=== PATIENT | female | born 2005 | race Caucasian/White ===

== ENCOUNTER 2024-03-10 18:10 | Emergency (ER) | payer MEDICAID, SELFPAY ==
[2024-03-10 18:13] VITALS: BP 128/82; PULSE 122; RESP 18; TEMP 36.9; O2SAT 98; BMI 16.9
--- NOTE | 2024-03-10 18:38 | EDS_ITS ---
HPI <AVI Braswell - Last Filed: 03/10/24 20:13> History of Present Illness Chief Complaint: Shortness of Breath Narrative Narrative: Patient is a 18-year-old female with no significant medical history presents to the emergency department for concerns as well as palpitations. Patient states that over the last week to 2 weeks, she has been frequenting emergency department as well as her doctor's office. Patient had a intrauterine ultrasound that was unremarkable. Patient is still early . Patient is positive , and her hCG quant isincreasing. PFSH <AVI Braswell - Last Filed: 03/10/24 20:13> [facility] Home Medications ?Medication ?Instructions ?Recorded ?Last Taken ?Type nitrofurantoin 100 mg PO Q12H 5 days #10 caps 03/10/24 Unknown Rx monohydrate/macrocrystals 100 mg capsule (Macrobid) Allergy/AdvReac Type Severity Reaction Status Date / Time No Known Allergies Allergy Verified 03/10/24 18:13 Social History Smoking Status: Never smoker ROS <AVI Braswell - Last Filed: 03/10/24 20:13> ROS ED ROS Narrative Constitutional: Negative for fever, chills, weight loss, weakness Eyes: Negative for vision loss, vision change, double vision ENT: Negative for any sore throat, ear pain, congestion Cardiovascular: Negative for any chest pain, tightness. Positive palpitations Respiratory: Negative for any cough, sputum production, hemoptysis, dyspnea, dyspnea on exertion, orthopnea Gastrointestinal: Negative for any abdominal pain, nausea, vomiting, diarrhea, constipation, blood in stool, blood in vomit : Negative for any urinary frequency, dysuria, retention, blood in urine. Positive for brown discharge to her vaginal area. This is when she wipes. Muscle skeletal: Negative for any neck pain, back pain Neurological: Negative for any headache, syncope, dizziness Skin: Negative for any rashes, itching, abrasions, lacerations Psychiatric: Negative for any depression, anxiety, stress, suicidal ideation, homicidal ideation Hematologic: Negative for any excessive bruising, easy bleeding EXAM <AVI Braswell - Last Filed: 03/10/24 20:13> Physical Exam Narrative Exam Narrative: Vital signs reviewed. HEET: Head normocephalic atraumatic, TMs clear bilaterally. Posterior pharynx is clear, moist mucous membranes. Nares clear bilaterally. Neck: Supple with no lymphadenopathy or tenderness. No signs of meningismus. Cardiac: Regular rate and rhythm no murmurs gallops or rubs, equal peripheral pulses bilaterally. Respiratory: Lungs clear to auscultation bilaterally. No chest tenderness. Abdomen: Soft, nontender, nondistended. No abdominal bruit or pulsatile masses. No hepatosplenomegaly Extremities: No peripheral edema, no signs of gross trauma or deformity. Active full range of motion of all extremities. Neuro: Cranial nerves II through XII intact, no focal neurological deficits. Skin: Clean dry and intact with no rash, purpura, petechiae, vesicles or pustules. Backs/flank: No CVA tenderness, no midline spinal tenderness, no deformity. Psych: Normal mood and affect. No SI, HI or acute psychosis. Const Vital Signs: 03/10/24 18:13 03/10/24 19:58 03/10/24 20:01 Temperature 98.5 F 97.1 F L Temperature Source Temporal Pulse Rate 122 H 91 Respiratory Rate 18 16 Respiratory Effort Normal Non-Labored Respiratory Depth Normal Respiratory Pattern Normal Blood Pressure 128/82 H 108/75 Blood Pressure Mean 97 86 Pulse Ox 98 99 Oxygen Delivery Method Room Air Room Air Positive well nourished and well developed General Appearance ED: well developed <Dr. Bart Dennis MD - Last Filed: 03/10/24 20:26> Physical Exam Const Vital Signs: 03/10/24 18:13 03/10/24 19:58 03/10/24 20:01 Temperature 98.5 F 97.1 F L Temperature Source Temporal Pulse Rate 122 H 91 Respiratory Rate 18 16 Respiratory Effort Normal Non-Labored Respiratory Depth Normal Respiratory Pattern Normal Blood Pressure 128/82 H 108/75 Blood Pressure Mean 97 86 Pulse Ox 98 99 Oxygen Delivery Method Room Air Room Air MDM <AVI Braswell - Last Filed: 03/10/24 20:13> MDM Lab Data Labs: Laboratory Results - last 24 hr 03/10/24 03/10/24 18:50 19:30 WBC 9.4 RBC 4.61 Hgb 13.9 Hct 41.2 MCV 89.4 MCH 30.2 MCHC 33.7 RDW Std Deviation 39.9 RDW Coeff of Ceci 12.2 Plt Count 264 MPV 9.3 Immature Gran % (Auto) 0.300 Neut % (Auto) 67.7 Lymph % (Auto) 20.3 [place] % (Auto) 9.7 Eos % (Auto) 1.1 Baso % (Auto) 0.9 Absolute Neuts (auto) 6.3 Absolute Lymphs (auto) 1.90 Nucleated RBC % 0 Sodium 139 Potassium 3.2 L Chloride 106 Carbon Dioxide 22.0 Anion Gap 11 BUN 8 Creatinine 0.58 Estim Creat Clear Calc 109.79 Est GFR (MDRD) Af Amer 169 Est GFR (MDRD) Non-Af 139 BUN/Creatinine Ratio 13.8 Glucose 89 Calcium 9.4 Urine Color Yellow Urine Clarity Sl. Cloudy Urine pH 6.0 Ur Specific [place] 1.020 Urine Protein 30 H Urine Glucose (UA) Normal Urine Ketones 150 A* Urine Occult Blood 50 H Urine Nitrite Negative Urine Bilirubin Negative Urine Urobilinogen 4 H Ur Leukocyte Esterase 25 H Urine RBC 0-5 SEEN Urine WBC 0-5 SEEN Ur Squamous Epith Cells 5-10 SEEN Urine Bacteria 1+ Urine Mucus 0 SEEN Treatment and Re-Evaluation :: Differential diagnosis includes however is not limited to: Patient appears to be in no obvious respiratory distress vital signs are stable. Patient presents to the emergency department with complaints of palpitations, lightheadedness, also concerned about . Looking at lab values from another facility, patient is definitely with continuing increasing hCG quant. Patient on my evaluation had normal heart sounds, patient received IV fluids, CBC as well as a BMP. Patient has a establish CAREER DEVELOPMENT COORDINATOR/TEACHER. Patient will be reevaluated Patient's CBC was unremarkable, chemistry shows slight hypokalemia with a potassium 3.2 this replaced orally. Patient urinalysis was positive for 1+ bacteria however there was squamous cells. Will be sent for culture. Patient will be started on Macrobid secondary to being . She will follow-up with her CAREER DEVELOPMENT COORDINATOR/TEACHER in 2 days. She instructed return for any worsening symptoms. All questions answered, patient stable for discharge. <Dr. Bart Dennis MD - Last Filed: 03/10/24 20:26> [facility] MDM Narrative Medical decision making narrative: Patient presents because of vaginal bleeding. She was seen in outside facility. Records from outside facility were obtained. Ultrasound revealed no intrauterine gestational sac of . Quant at that time was 77. Most recent quant is 291. I have personally performed a face to face assessment of the patient and have reviewed the NAYELI Note. I performed a substantive portion of the visit including all aspects of the following. My puckett findings include: History is remarkable for positive test with rising quantitative hCG appropriate for timeframe. Ultrasound that revealed no adnexal abnormality and no intrauterine however her quant at that time was only 77. Patient presents because she does not understand why she continues to have brown spotty vaginal bleeding. Patient's blood type is O+. Patient was informed that her blood type is O+. She denies abdominal pain. She states has not had intercourse in 2 weeks. Exam is pleasant thin 18-year-old appears no distress. She was tachycardic. That was one of her concerns. HEENT is unremarkable for dry mucosa otherwise negative. Heart is rapid and regular. There is no murmur, gallop or rub. Abdomen soft nontender. There is no CVA tenderness noted. Medical Decision Making UA was obtained. UA reveals bacteria. Since she is culture was sent and she was treated with antibiotics. Patient was informed of her results from outside facility. She was explained that she has a threatened miscarriage. She was informed as long as she has vaginal bleeding pelvic rest and this was explained to her. Other additions or changes: [None] Lab Data Attestation: I reviewed the patient's lab results. Lab results narrative: CBC is normal. Electrolyte panel is normal. UA reveals ketones, protein, blood and leukoesterase. There is 0-5 WBCs with 1+ bacteria. Labs: Laboratory Results - last 24 hr 03/10/24 03/10/24 18:50 19:30 WBC 9.4 RBC 4.61 Hgb 13.9 Hct 41.2 MCV 89.4 MCH 30.2 MCHC 33.7 RDW Std Deviation 39.9 RDW Coeff of Ceci 12.2 Plt Count 264 MPV 9.3 Immature Gran % (Auto) 0.300 Neut % (Auto) 67.7 Lymph % (Auto) 20.3 [place] % (Auto) 9.7 Eos % (Auto) 1.1 Baso % (Auto) 0.9 Absolute Neuts (auto) 6.3 Absolute Lymphs (auto) 1.90 Nucleated RBC % 0 Sodium 139 Potassium 3.2 L Chloride 106 Carbon Dioxide 22.0 Anion Gap 11 BUN 8 Creatinine 0.58 Estim Creat Clear Calc 109.79 Est GFR (MDRD) Af Amer 169 Est GFR (MDRD) Non-Af 139 BUN/Creatinine Ratio 13.8 Glucose 89 Calcium 9.4 Urine Color Yellow Urine Clarity Sl. Cloudy Urine pH 6.0 Ur Specific [place] 1.020 Urine Protein 30 H Urine Glucose (UA) Normal Urine Ketones 150 A* Urine Occult Blood 50 H Urine Nitrite Negative Urine Bilirubin Negative Urine Urobilinogen 4 H Ur Leukocyte Esterase 25 H Urine RBC 0-5 SEEN Urine WBC 0-5 SEEN Ur Squamous Epith Cells 5-10 SEEN Urine Bacteria 1+ Urine Mucus 0 SEEN Discharge Plan Triage Chief Complaint: Shortness of Breath Other Complaint: Vag Bld, Preg ED Midlevel Provider: Noam Coronado ED Provider: Bart Dennis Dx/Rx/DC Orders Clinical Impression: , Threatened miscarriage, Urinary tract infection during Instructions: Urinary Tract Infections in Women, Miscarriage Threatened Abor tion Prescriptions: New nitrofurantoin monohyd/m-cryst [Macrobid] 100 mg capsule 100 mg PO Q12H 5 Days Qty: 10 0RF Rx Instructions: must administer with a meal/food Primary Care Provider: Montana Mcnally Referrals: Montana Mcnally PA [Primary Care Provider] - Activity Restrictions/Additional Instructions: Please follow-up outpatient. Continue to follow with CAREER DEVELOPMENT COORDINATOR/TEACHER. Take the antibiotics until finished Print Language: Tamazight Disposition Disposition: Home, Self Care Discharge Date/Time: 03/10/24 20:22
[2024-03-10] MEDS: 0.9% Normal Saline (1000mL) 1,000 ML 999 ML IV (18:56)
[2024-03-10 19:02] LABS: Absolute Neutrophil Count 6.3 X10^3/uL (2.0-7.7); Basophil# 0.08 X10^3/uL; Basophil% 0.9 % (0-1); Eosinophils% 1.1 % (0-5); Hematocrit 41.2 % (37-47); Hemoglobin 13.9 g/dL (12.0-15.0); Lymphocyte % 20.3 % (19-41); Mean Corp Hgb Conc 33.7 g/dL (32-36); Mean Corpuscular Hgb 30.2 pg (27.0-32.0); Mean Corpuscular Volume 89.4 fL (81-99); Mean Platelet Vol. 9.3 fl (6.2-12.0); Monocyte# 0.91 X10^3/uL; Monocyte% 9.7 % (0-10); NRBC Flagged by Analyzer 0 % (0-5); Neutrophil # 6.34 X10^3/uL (2.7-7.7); Neutrophil % 67.7 % (47-70); Platelet Count 264 K/mm3 (150-450); RBC Distribution Width CV 12.2 % (11.6-14.6); RBC Distribution Width SD 39.9 fl (35.1-43.9); Red Blood Count 4.61 M/mm3 (4.2-5.4); White Blood Count 9.4 K/mm3 (4.4-11.0)
[2024-03-10 19:33] LABS: Anion Gap 11 (5-15); BUN 8 mg/dL (7-18); BUN/Creat Ratio 13.8 RATIO (10-20); Calcium,Total 9.4 mg/dL (8.5-10.1); Chloride 106 mmol/L (98-107); Creatinine, Serum 0.58 mg/dL (0.55-1.02); EST Glomerular Filtration Rate 139 mL/min (>60); Est Glom Filt Rate - Afr Amer 169 mL/min (>60); Estimated Creatinine Clearance 109.79 ml/min; Glucose 89 mg/dL (74-106); Potassium 3.2 mmol/L (3.5-5.1); Sodium Level 139 mmol/L (136-145)
[2024-03-10 19:38] LABS: Color, Urine Yellow (Yellow); Glucose, Dipstick Normal (Normal); Leukocyte Esterase-Dipstick 25 /ul (Negative); Mucous, Urine 0 SEEN /hpf (<or=2+); Nitrite-Dipstick Negative (Negative); Occult Blood-Urine 50 /ul (Negative); Protein-Dipstick 30 mg/dl (Negative); Urine Bilirubin Dipstick Negative (Negative); Urine Clarity Sl. Cloudy (Clear); Urine Urobilinogen 4 mg/dl (Normal)
[2024-03-10 19:53] LABS: Bacteria 1+ /hpf (None Seen); Ketone-Dipstick 150 mg/dl (Negative); Red Blood Cells-Urine 0-5 SEEN /hpf (0-5); Squamous Epithelial Cells - UA 5-10 SEEN /hpf (5-10); White Blood Cells 0-5 SEEN /hpf (0-5)
[2024-03-10] MEDS: Potassium Chloride Oral Tablet 20 MEQ 40 MEQ PO (19:57)
[2024-03-10 20:01] VITALS: BP 108/75; PULSE 91; RESP 16; TEMP 36.2; O2SAT 99
[2024-03-10] MEDS: Nitrofurantoin Macrocrystals 100 MG Capsule PO (20:03)
== END 2024-03-10 20:22 | disposition home or self-care (01) ==
PROVIDERS: Nurse Practitioner; Emergency Provider Emergency Medicine; PCP Physician Assistant; Visit Provider Emergency Medicine
DX: O20.0 Threatened abortion (principal); O23.41 Unspecified infection of urinary tract in pregnancy, first trimester; R06.02 Shortness of breath; Z3A.00 Weeks of gestation of pregnancy not specified
CPT/HCPCS: 80048; 81001; 85025; 87086; 96360; 99285; J7030

== ENCOUNTER 2025-09-03 13:45 | Day surgery (SDC) | payer MEDICAID, SELFPAY ==
--- NOTE | 2025-08-27 17:06 | PAT.ANE_ITS ---
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 When Was Last Pacemaker Check QUESTION #4 FULL TEXT: You/Your Family Experience fever (hyperthermia) with Anesthesia Last Oral Intake Last Oral intake: Last Oral Intake NPO since Meds taken in AM with sips of water? Meds patient instructed to take am of surgery PONV PONV - mushroom press operator: PONV - mushroom press operator Female Yes 08/23/25 15:13 HX of Motion Sickness No 08/23/25 15:13 HX of N/V After Surgery No 08/23/25 15:13 Non-Smoker No 08/23/25 15:13 Duration of Surgery greater No 08/23/25 15:13 than 60 minutes Number of Risk Factors 1 08/23/25 15:13 PONV Score Low Risk 08/23/25 15:13 Height & Weight Height & Weight: Anesthesia: Height & Weight Height 5 ft 4 in 07/22/25 11:27 Respiratory Assessment Respiratory Assessment - mushroom press operator: Respiratory Tract Infection Hx - mushroom press operator Hx Respiratory Tract Infection No 08/23/25 15:13 STOP Sleep Apnea STOP Sleep Apnea - mushroom press operator: STOP Sleep Apnea - mushroom press operator Hx Hypertension No 08/23/25 15:13 Hx Sleep Apnea No 08/23/25 15:13 CPAP BIPAP Do you snore loudly (louder No 08/23/25 15:13 than talking or can be heard Do you often feel tired/ No 08/23/25 15:13 fatigued/ sleepy during daytime? Has anyone observed you stop No 08/23/25 15:13 breathing during sleep? STOP Results Negative 08/23/25 15:13 QUESTION #5 FULL TEXT : Do you snore loudly (louder than talking or can be heard through closed doors)? 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 Specify any problems Hx of Preganancy in last 3 No 08/23/25 15:13 Months Nurse Filling Out Transfusion JZOLLINGE 08/23/25 15:13 & Questions: Date: 08/23/25 08/23/25 15:13 Time: 15:15 08/23/25 15:13 Patient unable to answer at this time (ie. confused, unrespo /Reproduction History /Reproductive History - mushroom press operator: /Reproductive Hx- mushroom press operator Hx Now No 08/23/25 15:13 Gestational Age (in weeks): EDC: Hx Hx Para Hx Section SAB No 08/23/25 15:13 Does the father of the baby or his family experience fever w Father of the baby Malignant Hypertension history comment PFSH Medical History (Updated 08/23/25 @ 15:13 by Marti Weinberg) Wears glasses Easy bruising Seizures Smoker POTS (postural orthostatic tachycardia syndrome) Anxiety and depression Home Medications ?Medication ?Instructions ?Recorded ?Last Taken ?Type fluoxetine 20 mg capsule (Prozac) 20 mg PO QDAY Unknown History Allergy/AdvReac Type Severity Reaction Status Date / Time No Known Allergies Allergy Verified 08/23/25 15:05 Family History (Updated 07/22/25 @ 11:38 by Karon Orlando) Grandmother Asthma History of blood clots Myocardial infarction Brother Diabetes Father Seizures Surgical History (Updated 08/23/25 @ 15:13 by Marti Weinberg) Hx of wisdom tooth extraction History of cholecystectomy Social History (Updated 10/13/25 @ 11:36 by Karon Bajwa Smoking Status: Light Smoker (<10/day) Electronic Cigarette Use: with nicotine alcohol intake: never substance use type: does not use what type of physical activity do you participate in: none additional social history: Single Audit: Pertinent Findings Pertinent Findings Additional pertinent findings: The patient was diagnosed with POTS recently. Will see coal hauler operator on 08/29/2025. Recommendation Anesthesia Recommendation Anesthesia recommendation: OPTIMIZED for anesthesia
--- NOTE | 2025-08-29 13:29 | PAT.ANESEVAL ---
Pre-Assessment Diagnosis/Proposed Procedure Planned Operative Procedure(s): (B) Laparoscopic, Salpingectomy Anesthesia History Anesthesia History - physician underwriter: Anesthesia History - physician underwriter Hx Hospitalization Yes: [facility]IL[facility] 08/23/25 15:13 Any Problems With Anesthesia No 08/23/25 15:13 Cholinesterase deficiency No 08/23/25 15:13 You/Your Family Experience No 08/23/25 15:13 fever (hyperthermia) with Relationship Recent Exposure to Contagious Disease Does patient have nerve No 08/23/25 15:13 stimulator Patient instructed to have device shut off --Does patient have Pacemaker or ICD? When Was Last Pacemaker Check QUESTION #4 FULL TEXT: You/Your Family Experience fever (hyperthermia) with Anesthesia Last Oral Intake Last Oral intake: Last Oral Intake NPO since Meds taken in AM with sips of water? Meds patient instructed to take am of surgery PONV PONV - physician underwriter: PONV - physician underwriter Female Yes 08/23/25 15:13 HX of Motion Sickness No 08/23/25 15:13 HX of N/V After Surgery No 08/23/25 15:13 Non-Smoker No 08/23/25 15:13 Duration of Surgery greater No 08/23/25 15:13 than 60 minutes Number of Risk Factors 1 08/23/25 15:13 PONV Score Low Risk 08/23/25 15:13 Height & Weight Height & Weight: Anesthesia: Height & Weight Height 5 ft 4 in 07/22/25 11:27 Respiratory Assessment Respiratory Assessment - physician underwriter: Respiratory Tract Infection Hx - physician underwriter Hx Respiratory Tract Infection No 08/23/25 15:13 STOP Sleep Apnea STOP Sleep Apnea - physician underwriter: STOP Sleep Apnea - physician underwriter Hx Hypertension No 08/23/25 15:13 Hx Sleep Apnea No 08/23/25 15:13 CPAP BIPAP Do you snore loudly (louder No 08/23/25 15:13 than talking or can be heard Do you often feel tired/ No 08/23/25 15:13 fatigued/ sleepy during daytime? Has anyone observed you stop No 08/23/25 15:13 breathing during sleep? STOP Results Negative 08/23/25 15:13 QUESTION #5 FULL TEXT : Do you snore loudly (louder than talking or can be heard through closed doors)? 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 Specify any problems Hx of Preganancy in last 3 No 08/23/25 15:13 Months Nurse Filling Out Transfusion JZOLLINGE 08/23/25 15:13 & Questions: Date: 08/23/25 08/23/25 15:13 Time: 15:15 08/23/25 15:13 Patient unable to answer at this time (ie. confused, unrespo /Reproduction History /Reproductive History - physician underwriter: /Reproductive Hx- physician underwriter Hx Now No 08/23/25 15:13 Gestational Age (in weeks): EDC: Hx Hx Para Hx Section SAB No 08/23/25 15:13 Does the father of the baby or his family experience fever w Father of the baby Malignant Hypertension history comment PFSH Medical History (Updated 08/23/25 @ 15:13 by Marti Weinberg) Wears glasses Easy bruising Seizures Smoker POTS (postural orthostatic tachycardia syndrome) Anxiety and depression Home Medications ?Medication ?Instructions ?Recorded ?Last Taken ?Type fluoxetine 20 mg capsule (Prozac) 20 mg PO QDAY 07/22/25 Unknown History Allergy/AdvReac Type Severity Reaction Status Date / Time No Known Allergies Allergy Verified 08/23/25 15:05 Family History (Updated 07/22/25 @ 11:38 by Karon Orlando) Grandmother Asthma History of blood clots Myocardial infarction Brother Diabetes Father Seizures Surgical History (Updated 08/23/25 @ 15:13 by Marti Weinberg) Hx of wisdom tooth extraction History of cholecystectomy Social History (Updated 10/13/25 @ 11:36 by Karon Bajwa Smoking Status: Light Smoker (<10/day) Electronic Cigarette Use: with nicotine alcohol intake: never substance use type: does not use what type of physical activity do you participate in: none additional social history: Single Audit: Pertinent Findings HISTORY of Pertinent Findings History of Pertinent Findings: Additional Pertinent Findings Additional pertinent findings The patient was diagnosed 08/27/25 17:08 with POTS recently. Will see helicopter mechanic on 2024. Pertinent Findings Additional pertinent findings: Patient being evaluated for POTS. This is to be performed 08/29 2025. If issues patient is going to notify surgery. Recommendation Anesthesia Recommendation Anesthesia recommendation: OPTIMIZED for anesthesia
--- NOTE | 2025-08-30 12:21 | PAT.ANE_ITS ---
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 When Was Last Pacemaker Check QUESTION #4 FULL TEXT: You/Your Family Experience fever (hyperthermia) with Anesthesia Last Oral Intake Last Oral intake: Last Oral Intake NPO since Meds taken in AM with sips of water? Meds patient instructed to take am of surgery PONV PONV - family and consumer education teacher: PONV - family and consumer education teacher Female Yes 08/23/25 15:13 HX of Motion Sickness No 08/23/25 15:13 HX of N/V After Surgery No 08/23/25 15:13 Non-Smoker No 08/23/25 15:13 Duration of Surgery greater No 08/23/25 15:13 than 60 minutes Number of Risk Factors 1 08/23/25 15:13 PONV Score Low Risk 08/23/25 15:13 Height & Weight Height & Weight: Anesthesia: Height & Weight Height 5 ft 4 in 08/29/25 13:55 Respiratory Assessment Respiratory Assessment - family and consumer education teacher: Respiratory Tract Infection Hx - family and consumer education teacher Hx Respiratory Tract Infection No 08/23/25 15:13 STOP Sleep Apnea STOP Sleep Apnea - family and consumer education teacher: STOP Sleep Apnea - family and consumer education teacher Hx Hypertension No 08/23/25 15:13 Hx Sleep Apnea No 08/23/25 15:13 CPAP BIPAP Do you snore loudly (louder No 08/23/25 15:13 than talking or can be heard Do you often feel tired/ No 08/23/25 15:13 fatigued/ sleepy during daytime? Has anyone observed you stop No 08/23/25 15:13 breathing during sleep? STOP Results Negative 08/23/25 15:13 QUESTION #5 FULL TEXT : Do you snore loudly (louder than talking or can be heard through closed doors)? 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 Specify any problems Hx of Preganancy in last 3 No 08/23/25 15:13 Months Nurse Filling Out Transfusion JZOLLINGE 08/23/25 15:13 & Questions: Date: 08/23/25 08/23/25 15:13 Time: 15:15 08/23/25 15:13 Patient unable to answer at this time (ie. confused, unrespo /Reproduction History /Reproductive History - family and consumer education teacher: /Reproductive Hx- family and consumer education teacher Hx Now No 08/23/25 15:13 Gestational Age (in weeks): EDC: Hx Hx Para Hx Section SAB No 08/23/25 15:13 Does the father of the baby or his family experience fever w Father of the baby Malignant Hypertension history comment PFSH Medical History (Updated 08/29/25 @ 14:[address] Zion Alcantara, DO) Wears glasses Easy bruising Seizures Smoker POTS (postural orthostatic tachycardia syndrome) Anxiety and depression Home Medications ?Medication ?Instructions ?Recorded ?Last Taken ?Type fluoxetine 20 mg capsule (Prozac) 20 mg PO QDAY Unknown History Allergy/AdvReac Type Severity Reaction Status Date / Time No Known Allergies Allergy Verified 08/29/25 13:58 Family History (Updated 07/22/25 @ 11:38 by Karon Orlando) Grandmother Asthma History of blood clots Myocardial infarction Brother Diabetes Father Seizures Surgical History (Updated 08/23/25 @ 15:13 by Marti Weinberg) Hx of wisdom tooth extraction History of cholecystectomy Social History (Updated 08/29/25 @ 14:00 by Devora Parada Smoking Status: Light Smoker (<10/day) Electronic Cigarette Use: with nicotine quit status: not considering quitting alcohol intake: never substance use type: does not use caffeine: Yes Type: carbonated beverages Number of servings: 1 what type of physical activity do you participate in: none additional social history: Single Audit: Pertinent Findings HISTORY of Pertinent Findings History of Pertinent Findings: Additional Pertinent Findings Additional pertinent findings Patient being evaluated for 08/29/25 13:31 POTS. This is to be performed 08/29 2025. If issues patient is going to notify surgery. Additional pertinent findings The patient was diagnosed 08/27/25 17:08 with POTS recently. Will see cherry dipper on 2024. Pertinent Findings Consult pertinent findings: Cardiology 08/29/2025. Preop cardiovascular exam. No further testing indicated prior to noncardiac surgery postural orthostatic tachycardia syndrome. Chronic. Ongoing for the past 6 to 12 months. Well- tolerated patient was recommended to have adequate hydration and good fluid intake and salt intake. No further workup at this time. Recommendation Anesthesia Recommendation Anesthesia recommendation: OPTIMIZED for anesthesia
[2025-09-03] VITALS (10 sets, daily range): BP systolic 96–124; BP diastolic 66–83; PULSE 61–98; RESP 16–20; TEMP 36.3–37.1; O2SAT 99–100; BMI 20.5
--- NOTE | 2025-09-03 14:05 | PCM.HP.BLA ---
History and Physical Date of Admission: 09/03/25 Intake Vital Signs 03/10/2418:13 07/22/2511:27 Height 5 ft 4 in 5 ft 4 in Weight: 120 lb 4 oz BMI 20.6 BP 121/77 H Intake Visit Reasons: Tubal Consult Blindstitch Hemmer Required: No Is patient in pain?: No Allergies No Known Allergies Allergy (Verified 07/22/25 11:34) Medications ?Medication ?Instructions ?Recorded ?Confirmed ?Type fluoxetine 20 mg capsule (Prozac) 20 mg PO QDAY 07/22/25 07/22/25 History Post menopausal: No Patient : No : No [facility] Medical History (Updated 07/22/25 @ 17:[address] Maria Luisa Blair, DO) POTS (postural orthostatic tachycardia syndrome) Anxiety and depression Surgical History (Updated 07/22/25 @ 11:36 by Karon Orlando) S/P cholecystectomy Family History (Updated 07/22/25 @ 11:38 by Karon Orlando) Grandmother Asthma History of blood clots Myocardial infarction Brother Diabetes Father Seizures Social History (Updated 07/22/25 @ 11:36 by Karon Orlando) Electronic Cigarette Use: with nicotine alcohol intake: never substance use type: does not use what type of physical activity do you participate in: none additional social history: Single HPI Tubal Consult Details: KEITH NINO is a 20 year old who presents for sterilization consultation. She is confident that she does not want any more children. Her fiancee does not have insurance so he can not get a vasectomy. She states that she realizes she is young but she really only wants 2 kids and she does not feel well on control due to her POTS. History 3 Elective abortions Hx Para 2 Spontaneous abortions 1 Hx # Term Pregnancies Ectopic pregnancies Hx # Pregnancies Multiple births # of living children Past Pregnancies Del. Date Name GA/Weeks Outcome Route Bth Weight Infant Gen Labor Lgth Anesthesia Del Locatn Provider FOB Unknown Sahu Unknown Mellissa ROS Const ROS Unobtainable: All systems reviewed & are unremarkable except as noted in H Resp Resp: Reports system reviewed and no additional complaints, except as documented; Denies cough GI GI: Reports as per HPI Psych Psych: Reports system reviewed and no additional complaints, except as documented Exam Const General: cooperative, healthy appearing, comfortable and no acute distress Resp Effort & Inspection: normal respiratory effort Skin General: no rashes or lesions noted Psych Appearance: grossly normal Speech and Movement: speech and movement normal Coding Level of Care Code Off vis,est,level 4 Diagnoses POTS (postural orthostatic tachycardia syndrome) G90.A Sterilization consult Z30.09 Assessment and Plan Assessment and Plan (1) POTS (postural orthostatic tachycardia syndrome): Status: Acute (2) Sterilization consult: Status: Acute Plan: After discussing the patient's diagnosis and treatment plan options, patient wishes to proceed with surgical management. I have discussed with the patient the risks, benefits, and alternatives of the procedure which include but are not limited to risks of anesthesia, bleeding, infection, possible damage to bowel, bladder, or surrounding vasculature which could lead to additional surgery to evaluate any complications. Patient agrees to procedure and wishes to proceed. ACOG/uptodate references given for additional information regarding procedure.
[2025-09-03 14:07] LABS: Internal QC Validated? YES +Cl - CLEAR BKGD; Pregnancy, Urine Negative Negative; Record Kit Lot#,Urine Preg 980607
[2025-09-03] MEDS: Lactated Ringers 1,000 ML 15 ML IV ×2 (14:10→16:24)
[2025-09-03 14:13] LABS: Hematocrit 43.5 % (37-47); Hemoglobin 14.3 g/dL (12.0-15.0); Mean Corp Hgb Conc 32.9 g/dL (32-36); Mean Corpuscular Volume 88.6 fL (81-99); Mean Platelet Vol. 9.3 fl (6.2-12.0); Platelet Count 235 K/mm3 (150-450); RBC Distribution Width CV 12.0 % (11.6-14.6); RBC Distribution Width SD 39.0 fl (35.1-43.9); Red Blood Count 4.91 M/mm3 (4.2-5.4); White Blood Count 5.1 K/mm3 (4.4-11.0)
--- NOTE | 2025-09-03 14:27 | PCM.PRE.AN2 ---
ASA Classification* ASA Classification ASA Classification: 2 (POTS) Assessment & Plan Anesthesia* Anesthesia Assessment Anesthesia Assessment: Discussed sedation and/or anesthesia options, risks, benefits, and alternatives with patient/parents/legal guardian/POA. Questions invited. The patient/parents/legal guardian/POA seems to understand and agrees to proceed with anesthesia plan. Reviewed the physical assessment, medical history, allergy history and patient home medications list prior to surgery/procedure/anesthetic and documented any changes. Performed airway and anesthesia risk assessments. Had gulps of water at 1330. Will have to hold anesthesia till 1530. Anesthesia Type Anesthesia Type: General History Source History Obtained from:: Patient and Chart Anesthesia Focused Assessment* Temperature: 98.8 F Pulse Rate: 95 Blood Pressure: 115/80 Respiratory Rate: 16 Pulse Ox: 100 Oxygen Delivery Method: Room Air Airway Assessment Mouth opens: >3 cm Mallampati Score: I Teeth Condition: Intact Neck Range of motion (ROM): Full ROM Labs Anesthesia Preop lab: CBC WBC, (4.4-11.0) 5.1 K/mm3 Today, 13:55 RBC, (4.2-5.4) 4.91 M/mm3 Today, 13:55 Hgb, (12.0-15.0) 14.3 g/dL Today, 13:55 Hct, (37-47) 43.5 % Today, 13:55 Plt Count, (150-450) 235 K/mm3 Today, 13:55 CHEMISTRY Potassium, (3.5-5.1) 3.2 mmol/L L 03/10/24, 18:50 Sodium, (136-145) 139 mmol/L 03/10/24, 18:50 BUN, (7-18) 8 mg/dL 03/10/24, 18:50 Creatinine, (0.55-1.02) 0.58 mg/dL 03/10/24, 18:50 Glucose, (74-106) 89 mg/dL 03/10/24, 18:50 COAG Urine Test Negative Negative Today, 13:55 Pre-Assessment Diagnosis/Proposed Procedure Planned Operative Procedure(s): (B) Laparoscopic, Salpingectomy Anesthesia History 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 When Was Last Pacemaker Check QUESTION #4 FULL TEXT: You/Your Family Experience fever (hyperthermia) with Anesthesia Last Oral Intake Last Oral intake: Last Oral Intake NPO since 13:30 09/03/25 14:05 Meds taken in AM with sips of No 09/03/25 14:05 water? Meds patient instructed to take am of surgery PONV PONV - edging machine setter: PONV - edging machine setter Female Yes 08/23/25 15:13 HX of Motion Sickness No 08/23/25 15:13 HX of N/V After Surgery No 08/23/25 15:13 Non-Smoker No 08/23/25 15:13 Duration of Surgery greater No 08/23/25 15:13 than 60 minutes Number of Risk Factors 1 08/23/25 15:13 PONV Score Low Risk 08/23/25 15:13 Height & Weight Height & Weight: Anesthesia: Height & Weight Height 5 ft 4 in 09/03/25 14:05 Weight: 54.3 kg 09/03/25 14:05 Body Mass Index (BMI) 20.5 09/03/25 14:05 Respiratory Assessment Respiratory Assessment - edging machine setter: Respiratory Tract Infection Hx - edging machine setter Hx Respiratory Tract Infection No 08/23/25 15:13 STOP Sleep Apnea STOP Sleep Apnea - edging machine setter: STOP Sleep Apnea - edging machine setter Hx Hypertension No 08/23/25 15:13 Hx Sleep Apnea No 08/23/25 15:13 CPAP BIPAP Do you snore loudly (louder No 08/23/25 15:13 than talking or can be heard Do you often feel tired/ No 08/23/25 15:13 fatigued/ sleepy during daytime? Has anyone observed you stop No 08/23/25 15:13 breathing during sleep? STOP Results Negative 08/23/25 15:13 QUESTION #5 FULL TEXT : Do you snore loudly (louder than talking or can be heard through closed doors)? 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 Specify any problems Hx of Preganancy in last 3 No 08/23/25 15:13 Months Nurse Filling Out Transfusion JZOLLINGE 08/23/25 15:13 & Questions: Date: 08/23/25 08/23/25 15:13 Time: 15:15 08/23/25 15:13 Patient unable to answer at this time (ie. confused, unrespo /Reproduction History /Reproductive History - edging machine setter: /Reproductive Hx- edging machine setter Hx Now No 08/23/25 15:13 Gestational Age (in weeks): EDC: Hx Hx Para Hx Section SAB No 08/23/25 15:13 Does the father of the baby or his family experience fever w Father of the baby Malignant Hypertension history comment Active Medications Active Medications: Current Medications Generic Name Dose Route Start Last Admin Trade Name Freq PRN Reason Stop Dose Admin Lactated Ringer's 1,000 mls @ 15 mls/hr 09/03/25 14:15 09/03/25 14:10 IV 15 mls/hr .Q48H AMANDO Administration PFSH Medical History (Updated 08/29/25 @ 14:[address] Zion Alcantara, DO) Wears glasses Easy bruising Seizures Smoker POTS (postural orthostatic tachycardia syndrome) Anxiety and depression Home Medications ?Medication ?Instructions ?Recorded ?Last Taken ?Type fluoxetine 20 mg capsule (Prozac) 20 mg PO QDAY 07/22/25 Unknown History Allergy/AdvReac Type Severity Reaction Status Date / Time No Known Allergies Allergy Verified 09/03/25 14:01 Family History (Updated 07/22/25 @ 11:38 by Karon Orlando) Grandmother Asthma History of blood clots Myocardial infarction Brother Diabetes Father Seizures Surgical History (Updated 08/23/25 @ 15:13 by Marti Weinberg) Hx of wisdom tooth extraction History of cholecystectomy Social History (Updated 08/29/25 @ 14:00 by Devora Benedict) Smoking Status: Light Smoker (<10/day) Electronic Cigarette Use: with nicotine quit status: not considering quitting alcohol intake: never substance use type: does not use caffeine: Yes Type: carbonated beverages Number of servings: 1 what type of physical activity do you participate in: none additional social history: Single Review of Systems (Anesthesia) ROS Narrative System reviewed and no additional complaints, except as documented. Physical Exam Const alert, oriented x3 and average body habitus Resp normal respiratory effort, normal air movement and clear to auscultation bilaterally Cardio regular rate, regular rhythm and no murmurs; Negative for diaphoretic
--- NOTE | 2025-09-03 14:38 | DCINST_ITS ---
Discharge Instructions DC O2, CPAP, BIPAP needs Home O2 Discharge instructions: No Dressing / Incision Discharge Activity: Return to Normal Activity, May Not Drive (for two weeks or while taking narcotic pain medications.), May Shower and May Take a Tub Bath (in 7 days) May resume sexual activity in: 1 week Weight Bearing Status: Full weight bearing Dressing / Incision Call your doctor if you observe: Using more than 1 pad per hour, Shortness of breath, Chest pain and Uncontrolled pain Suture Line Care: Avoid Pulling/Pushing and Avoid Pinching/Bending Remove Dressing in: 1 week (if present) Cleanse incision/area with: Soap & Water and Keep Dressing Clean & Dry Follow Up Care Please Follow Up With: Maria Luisa Blair DO When: Call to make an appointment with your doctor for a follow up incision check in 1-2 weeks. Test Results: Test results from this visit will be discussed in further detail at your follow- up appointment, if applicable. Discharge Plan Admission Primary Reason for Your Visit: laparoscopic bilateral salpingectomy Attending Provider: Maria Luisa Blair Primary Care Provider: Montana Mcnally Instructions Print Language: Tanzanian Discharge Orders/Prescriptions Prescriptions: New ibuprofen 800 mg tablet 800 mg PO Q8H PRN (Reason: pain) Qty: 20 0RF ondansetron HCl 4 mg tablet 4 mg PO Q6H PRN (Reason: nausea and vomiting) Qty: 20 0RF oxycodone-acetaminophen [Percocet] 5-325 mg tablet 1 tab PO Q4H PRN (Reason: pain) 7 Days Qty: 10 0RF Continued fluoxetine [Prozac] 20 mg capsule 20 mg PO QDAY Referrals / Follow Up: Montana Mcnally PA [Primary Care Provider, Urgent Care] Disposition Disposition (needs filled in before D/C Order can be placed): Home, Self Care
[2025-09-03] MEDS: Lidocaine 1% (5 ml sdv) 5 ML Vial 6 ML IV (15:31)
[2025-09-03] MEDS: DiphenhydrAMINE 50 MG/ML Syringe 12.5 MG IV (15:39)
[2025-09-03] MEDS: fentaNYL 100 MCG/2 ML Ampul IV (15:39)
--- NOTE | 2025-09-03 15:45 | FALS_PTH ---
PATIENT: KEITH NINO LOC: [facility] [place] U#:[id number] AGE/SX: 20/F ROOM: RE09/03/[address]: Dr. Maria Luisa Blair DO : 2005 BED: DIS: 09/03/2025 SPEC #: [id number] RECD: 09/03/25 18:09 STATUS: VALDEMAR REClare #: [id number] CAROLE: 09/03/25 15:[address]: Maria Luisa Blair DEPT: SURGICAL PATHOLOGY RECD BY: Jeremy Sheikh ENTERED: 09/04/25 10:24 SP TYPE: FALL TUBES OTHR DR: HORACIO Finley Tissues: A - Fallopian tube Procedures: Surgery Specimen Level II HEADER OPERATION: Laparoscopic salpingectomy PRE-OP DIAGNOSIS: Desired sterilization TISSUE SUBMITTED: A- Bilateral fallopian tubes MICROSCOPIC DIAGNOSIS A. Fallopian tubes, bilateral salpingectomy: - No specific pathologic change with complete luminal cross-section confirmed, x2. MICROSCOPIC DESCRIPTION Slides are reviewed. GROSS DESCRIPTION A. Received in formalin labeled with the patient's name and date of . Designated as bilateral fallopian tubes are 2 pink-purple to red fimbriated fallopian tubes, devoid of orientation and measuring 8.6 x 0.6 cm and 9.2 x 0.4 cm. Definitive lesions are not grossly appreciated. Critical Power Install Technician sections are submitted in 2 cassettes. NE 09/04/2025PT:[id number]
--- NOTE | 2025-09-03 15:58 | OP.PCM_ITS ---
Multi Select Codes Urinary/Genital Urinary/Genital CPT Codes: 69727 Laproscopic BS/O Operative Report (Standard) Operative Information Date of Procedure: 09/03/25 Pre-Operative Diagnosis: desires permanent sterilization Post-Operative Diagnosis: desires permanent sterilization Surgery/Procedure Performed: laparoscopic bilateral salpingectomy department store general manager: Yes Entry Operator: Errol Lechuga Tasks completed by certified surgical first assistant: Closing and Other (operating camera) Additional preschool assistant director?: No Type of Anesthesia: General RN Documented Start/Stop Times: Operation Date: 09/03/25 15:45 Case Time Into Pre-Op 09/03/25 13:45 Out of Pre-Op 09/03/25 15:23 Anesthesia Start 09/03/25 15:26 Into Room 09/03/25 15:26 Procedure Start 09/03/25 15:45 Procedure Start Time: 15:45 Procedure Stop Time: 16:00 Select all DRAINS/GRAFTS/IMPLANTS that apply: None Estimated Blood Loss: 5cc Specimen collected: Yes Description of specimen(s) removed: bilateral fallopian tubes Description of surgery: Patient was taken in the operating room and was placed under general anesthesia was prepped and draped in normal sterile fashion in the dorsal lithotomy position. Bladder was drained of clear urine and SCDs were on preoperatively. Uterus was sounded and a uterine manipulator was placed after dilating. Attention was then paid to the abdominal portion of the procedure and the umbilicus was injected with 0.75% sensorcaine Next a 5 mm incision was made and a 5 mm laparoscopic port was inserted under direct visualization. The Abdomen was insufflated with CO2 gas and a Left lower quadrant 5 mm port was placed. A suprapubic 5mm trocar was then inserted next. The Uterus was well visualized and bilateral fallopian tubes and ovaries were identified and the infundibulopelvic ligaments were transected across using the LigaSure device followed by transecting across the mesosalpinx to the attachment to the uterine corpus bilaterally the tubes and ovaries were removed without complication. Excellent hemostasis was noted. Fallopian tubes were removed through the lower port sites without complication. Liver and upper abdomen were visualized notably within normal limits and no other gross abnormalities were seen in the abdomen. All instruments removed from the abdomen after gas was desufflated. Port sites were closed with 3-0 Monocryl and surgical glue was used. All instruments removed from the vagina and patient was awoken and taken recovery in stable condition. Surgical Findings: normal uterus, tubes, ovaries Complications Complications: No Admit VTE Documentation VTE Present on Admission: No VTE Mechan Device Prophylaxis: SCD's VTE Pharm Prophylaxis ordered?: No
--- NOTE | 2025-09-03 16:14 | PCM.POST.ANE ---
Anesthesia: Postop Eval I Current Vital Signs Temperature: 97.6 F Pulse Rate: 90 Blood Pressure: 124/75 Respiratory Rate: 18 Pulse Ox: 100 Oxygen Delivery Method: Room Air Assessment Airway patent: Yes Spontaneous unlabored respirations: Yes Mental status: Awake and Calm nausea: No Vomiting: No Anesthesia Complication: No Fluid Hydration Crystalloid volume administer (ml): 900 Total IV fluid infused: 900 Progress Note Anesthesia document: Postop Eval 1 completed: Yes
[2025-09-03] MEDS: Ketorolac 30 MG/ML Syringe IV (16:24)
--- NOTE | 2025-09-03 16:25 | PCM.POSTANE2 ---
Anesthesia Postop Eval I Sum Postop Eval Completion status Anesthesia document: Postop Eval 1 completed: Yes Anesthesia Postop Eval I Summary Anesthesia Postop Eval I Summary: Anesthesia Postop Eval I: Assessment Summary Airway patent Yes 09/03/25 16:14 GUEST SERVICE TEAM [email or web address].[email or web address] Spontaneous unlabored Yes 09/03/25 16:14 GUEST SERVICE TEAM LEADER.ANISA respirations Mental status Awake,Calm 09/03/25 16:14 GUEST SERVICE TEAM LEADER.ANISA nausea No 09/03/25 16:14 GUEST SERVICE TEAM LEADER.ANISA Vomiting No 09/03/25 16:14 GUEST SERVICE TEAM LEADER.ANISA Anesthesia Postop Eval I: Fluid Summary Crystalloid volume administer 900 09/03/25 16:14 GUEST SERVICE TEAM LEADER.[email or web address] (ml) Colloids volume administered ( ml) Blood Product volume administered (ml) Total IV fluid infused 900 09/03/25 16:14 GUEST SERVICE TEAM LEADER.ANISA Anesthesia Postop Eval I: Summary Notes Anesthesia Complication No 09/03/25 16:14 GUEST SERVICE TEAM LEADER.ANISA Anesthesia Complication Comment: Post-operative progress note Anesthesia: Postop Eval II Evaluation Mental status: Awake Pain Level: 0 nausea: No Vomiting: No Complications Anesthesia Complication: No
--- NOTE | 2025-09-03 16:25 | POSTOPAN2_ITS ---
Anesthesia Postop Eval I Sum Postop Eval Completion status Anesthesia document: Postop Eval 1 completed: Yes Anesthesia Postop Eval I Summary Anesthesia Postop Eval I Summary: Anesthesia Postop Eval I: Assessment Summary Airway patent Yes 09/03/25 16:14 WEIGHT LOSS [email or web address] Spontaneous unlabored Yes 09/03/25 16:14 WEIGHT LOSS [email or web address] respirations Mental status Awake,Calm 09/03/25 16:14 WEIGHT LOSS [email or web address] nausea No 09/03/25 16:14 WEIGHT LOSS [email or web address] Vomiting No 09/03/25 16:14 WEIGHT LOSS [email or web address] Anesthesia Postop Eval I: Fluid Summary Crystalloid volume administer 900 09/03/25 16:14 WEIGHT LOSS [email or web address] (ml) Colloids volume administered ( ml) Blood Product volume administered (ml) Total IV fluid infused 900 09/03/25 16:14 WEIGHT LOSS [email or web address] Anesthesia Postop Eval I: Summary Notes Anesthesia Complication No 09/03/25 16:14 WEIGHT LOSS [email or web address] Anesthesia Complication Comment: Post-operative progress note Anesthesia: Postop Eval II Evaluation Mental status: Awake Pain Level: 0 nausea: No Vomiting: No Complications Anesthesia Complication: No
== END 2025-09-03 17:08 | disposition home or self-care (01) ==
LOC: SDC 13:45 → AC 13:47
PROVIDERS: PCP Physician Assistant; Referring Provider Obstetrics & Gynecology; Visit Provider Obstetrics & Gynecology
PROC: (CPT 58661; principal; 2025-09-03 15:30)
DX: Z30.2 Encounter for sterilization (principal); G90.A Postural orthostatic tachycardia syndrome [POTS]; F17.290 Nicotine dependence, other tobacco product, uncomplicated
CPT/HCPCS: 58661; 00840; 81025; 85027; 86850; 86900; 86901; 88302; J2405